=== PATIENT | female | born 1970 | race Caucasian/White ===

== ENCOUNTER 2017-06-19 00:49 | Emergency (ER) | payer MEDICAID, OTHER ==
[~2017-06-19] VITALS: Ht 167.6 cm; Wt 113.4 kg
--- OUTSIDE RECORDS SUMMARY | 2017-06-19 00:56 | XMS REPORT ---
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 Role Phone ROYCE MEJIA Unavailable Allergies, Adverse Reactions, Alerts Substance Reaction Event Type Sulfacetamide Sodium Info Not Available Drug Allergy Problems Problem Type Condition Code Onset Dates Condition Status Assessment Foot pain M79.673 Active Medications Medication Code System Code Instructions Start Date End Date Status Dosage Naprosyn [facility] [address]-57 500 MG Orally every 12 hrs June 04, 2015 June 14, 2015 1 tablet as needed Procedures Procedure Coding System Code Date Office Visit, New Pt., Level 3 CPT-4 [id number] June 04, 2015 Vital Signs Date/Time: June 04, 2015 Temperature 98.8 F Weight 319.6 lbs Height 66 in BMI 51.58 Index Blood Pressure Diastolic 76 mmHg Blood Pressure Systolic 112 mmHg Cardiac Monitoring Heart Rate 76 bpm Results No Known Results Summary Purpose [employer] Submission
--- NOTE | 2017-06-19 01:36 | ED Lower Extremity ---
General Chief Complaint: Lower Extremity Stated Complaint: RT FOOT INJURY Nursing Triage Note: PT TO ED 5 W/ C/O RT FOOT PAIN ONSET 0 YESTERDAY AFTER CATCHING IT UNDER A TREE ROOT WHILE MOWING. Nursing Sepsis Screen: No Definite Risk Source: patient Exam Limitations: no limitations History of Present Illness Date Seen by Provider: June 19, 2017 Time Seen by Provider: 01:15 Initial Comments Here with report of right ankle pain after tripping on a root at about 7 p.m. when mowing the yard. Tried to just rest the foot and ankle and pain became progressively worse. She has to work a 10 hour day today and has to stand on her feet the whole time since she was worried that she may have fractured it. Denies other injury. Pain to the medial aspect of the right ankle. Onset: yesterday Severity: moderate Pain/Injury Location: right ankle Method of Injury: twisted Modifying Factors: Improves With Immobilization; Worse With Movement Allergies and Home Medications Allergies Coded Allergies: Sulfa (Sulfonamide Antibiotics) (Verified Allergy, Unknown, 06/19/17) Patient Home Medication List Home Medication List Reviewed: Yes Constitutional: no symptoms reported; No chills, No fever Respiratory: no symptoms reported Cardiovascular: no symptoms reported Musculoskeletal: see HPI, joint pain, joint swelling Skin: No change in color, No lesions Past Dfmvmon-Vfxhwx-Nqhabt Hx Past Med/Social Hx: Reviewed Nursing Past Med/Soc Hx Patient Social History Alcohol Use: Denies Use Recreational Drug Use: No Smoking Status: Never a Smoker Recent Foreign Travel: No Contact w/Someone Who Travel: No Recent Infectious Disease Expo: No Recent Hopitalizations: No Physical Abuse: No Sexual Abuse: No Mistreated: No Fear: No Past Medical History Surgeries: Yes Section Respiratory: No Cardiac: No Neurological: No Genitourinary: No Gastrointestinal: No Musculoskeletal: No Endocrine: No HEENT: No Cancer: No Psychosocial: No Nursing Suicide Risk Score: 0 Integumentary: No Blood Disorders: No Family Medical History Reviewed Nursing Family Hx Physical Exam Vital Signs Vital Signs - First Documented 06/19/17 00:55 Temp 98.4 Pulse 87 Resp 20 B/P (MAP) 143/105 (118) Pulse Ox 99 O2 Delivery Room Air Capillary Refill : Less Than 3 Seconds General Appearance: WD/WN, no apparent distress Cardiovascular: regular rate, rhythm, no murmur Respiratory: lungs clear, normal breath sounds Ankles: left ankle non-tender, left ankle normal inspection, left ankle normal range of motion; right ankle pain, right ankle soft tissue tenderness, right ankle swelling, right ankle other (tender to the medial aspect of the right ankle between the malleolus and base of the foot) Feet: right foot non-tender, right foot normal inspection, right foot normal range of motion, right foot no evidence of injury Neurologic/Psychiatric: no motor/sensory deficits, alert, normal mood/affect Skin: normal color, warm/dry; No ecchymosis Progress/Results/Core Measures My Orders Orders - WANG HIRSCH MD Ankle, Right, 3 Views (06/19/17 01:19) Vital Signs/I&O 06/19/17 00:55 Temp 98.4 Pulse 87 Resp 20 B/P (MAP) 143/105 (118) Pulse Ox 99 O2 Delivery Room Air Blood Pressure Mean: 118 Progress Note : Progress Note Seen and evaluated. X-ray right ankle. No acute fracture. Royer wrap and gel splint applied. Discharged home with return precautions. Patient verbalize understanding instructions and agreement with plan. Diagonstic Imaging: Xray Plain Films/CT/US/NM/MRI: ankle Comments Three-view right ankle shows no acute fracture. There is some soft tissue swelling noted. Departure Impression Primary Impression: Moderate right ankle sprain Qualified Codes: S93.401A - Sprain of unspecified ligament of right ankle, initial encounter Disposition: 01 HOME, SELF-CARE Condition: Improved Departure-Patient Inst. Decision time for Depature: 01:39 Referrals: NO,LOCAL PHYSICIAN (PCP/Family) Primary Care Physician Patient Instructions: Ankle Sprain (DC) Add. Discharge Instructions: All discharge instructions reviewed with patient and/or family. Voiced understanding. You may take ibuprofen 800 mg every 8 hours as needed for pain. You may take Tylenol/acetaminophen 1000 mg every 8 hours as needed for pain. Use Royer wrap and gel splint as needed for comfort over the next several days and then as needed. Elevate foot when possible to decrease swelling. You may use ice packs to area of concern 20 minutes per hour as needed to reduce swelling and pain. Follow-up with your DrJaylan in a few days for recheck as needed. Return for worse pain, swelling, numbness or other concerns as needed. Work/School Note: Work Release Form Date Seen in the Emergency Department: June 19, 2017 Return to Work: June 20, 2017 Restrictions: No Restrictions WANG HIRSCH MD June 19, 2017 01:35
[2017-06-19 02:12] VITALS: BP 0/0
--- NOTE | 2017-06-19 07:19 | Diagnostic Imaging Report ---
INDICATION: Hit ankle on tree root medial pain. FINDINGS: 3 views. Ankle mortise is in good alignment. Articulating surfaces are smooth. Joint spaces are well preserved. There are no fractures. There does appear to be mild generalized swelling of the soft tissues. IMPRESSION: No bony abnormalities. Dictated by: Dictated on workstation # [id number]
== END 2017-06-19 01:45 | disposition home or self-care (01) ==
LOC: EDUNIT# 00:49 → ER 00:53
DX: S93.401A Sprain of unspecified ligament of right ankle, initial encounter (principal); Z88.2 Allergy status to sulfonamides; Z87.59 Personal history of other complications of pregnancy, childbirth and the puerperium; W01.0XXA Fall on same level from slipping, tripping and stumbling without subsequent striking against object, initial encounter; Y92.007 Garden or yard of unspecified non-institutional (private) residence as the place of occurrence of the external cause
CPT/HCPCS: 73610